=== PATIENT | male | born 1970 | race Caucasian/White ===

== ENCOUNTER 2020-05-02 02:01 | Emergency (ER) | payer OTHER ==
[~2020-05-02] VITALS: Ht 180.3 cm; Wt 79.4 kg
[2020-05-02 02:23] VITALS: Ht 180.3 cm; Wt 79.4 kg
[2020-05-02 06:17] VITALS: BP 124/78
== END 2020-05-02 06:17 | disposition home or self-care (01) ==
LOC: ED 02:01
DX: L03.114 Cellulitis of left upper limb (principal); L03.113 Cellulitis of right upper limb; R68.84 Jaw pain; E11.9 Type 2 diabetes mellitus without complications; Z59.0 Homelessness; Y04.8XXA Assault by other bodily force, initial encounter; Y93.89 Activity, other specified; Y92.89 Other specified places as the place of occurrence of the external cause; Y99.8 Other external cause status
CPT/HCPCS: 82962